=== PATIENT | female | born 1995 | race Caucasian/White ===

== ENCOUNTER 2018-03-02 10:34 | Emergency (ER) | payer MEDICAID ==
[2018-03-02] MEDS: METOCLOPRAMIDE 10 MG TAB PO (12:31)
[2018-03-02 12:35] LABS: URINE BLOOD (Dip) POC 2+ (NEGATIVE); URINE GLUCOSE (Dip) POC Negative (NEGATIVE); URINE KETONES (Dip) POC Negative (NEGATIVE); URINE LEUKOCYTE EST (Dip) POC 1+ (NEGATIVE); URINE NITRITE (Dip) POC Positive (NEGATIVE); URINE TOTAL PROTEIN POC Negative (NEGATIVE)
[2018-03-02 12:39] LABS: ADD MAN DIFF? NO
[2018-03-02 12:44] LABS: WHITE BLOOD COUNT 16.7 10^3/ul (4.8-10.8)
[2018-03-02 12:44] LABS: BASOPHIL # 0.1 10^3/ul (0.0-0.1); BASOPHILS % 0.5 % (0.0-2.0); HEMOGLOBIN 14.5 g/dl (12.0-16.0); LYMPHOCYTES # 3.1 10^3/ul (0.8-2.9); LYMPHOCYTES % 18.4 % (15.0-51.0); MEAN CORPUSCULAR HEMOGLOBIN 31.6 pg (29.0-33.0); MEAN CORPUSCULAR HGB CONC 34.5 g/dl (32.0-37.0); MEAN CORPUSCULAR VOLUME 91.5 fl (82.0-101.0); MONOCYTE # 0.9 10^3/ul (0.3-0.9); MONOCYTES % 5.5 % (0.0-11.0); NEUTROPHIL # 12.6 10^3/ul (1.6-7.5); NEUTROPHILS % 75.3 % (39.0-77.0); PLATELET COUNT 301 10^3/UL (140-415); RED BLOOD COUNT 4.59 10^6/ul (4.20-5.40); RED CELL DISTRIBUTION WIDTH 12.3 % (11.5-14.5)
[2018-03-02 13:01] LABS: ANION GAP 16 (8-16); BLOOD UREA NITROGEN 8 mg/dl (7-20); CALCIUM 9.4 mg/dl (8.4-10.2); CARBON DIOXIDE 28 mmol/L (21-31); CHLORIDE 105 mmol/L (97-110); CREATININE 0.66 mg/dl (0.44-1.00); GLUCOSE 90 mg/dl (70-220); POTASSIUM 4.3 mmol/L (3.5-5.1); SODIUM 145 mmol/L (135-144)
[2018-03-02] MEDS: CIPROFLOXACIN 500 MG TAB PO (13:22)
== END 2018-03-02 13:45 | disposition home or self-care (01) ==
LOC: FTE 10:34
DX: H81.10 Benign paroxysmal vertigo, unspecified ear (principal); N39.0 Urinary tract infection, site not specified
CPT/HCPCS: 70450; 80048; 81003; 81025; 85025; 99284-25